=== PATIENT | female | born 1995 | race Caucasian/White ===

== ENCOUNTER 2018-07-07 03:12 | Inpatient (IN) | payer MEDICAID ==
[2018-07-07] MEDS ORDERED: MISOPROSTOL 200 MCG TAB PR (04:00)
[2018-07-07] MEDS ORDERED: IBUPROFEN 600 MG TAB PO (04:00)
[2018-07-07] MEDS ORDERED: LIDOCAINE 1% (MPF) 30 ML INJ INJ (04:00)
[2018-07-07] MEDS ORDERED: OXYTOCIN 30 UNITS/LR 500 ML IV ×4 (04:00→20:43)
[2018-07-07] MEDS ORDERED: BUTORPHANOL 2 MG INJ IV (04:00)
[2018-07-07] MEDS ORDERED: METHYLERGONOVINE 0.2 MG INJ IM (04:00)
[2018-07-07] MEDS ORDERED: CARBOPROST 250 MCG INJ IM (04:00)
[2018-07-07 04:10] LABS: RUPTURE FETAL MEMBRANES NEGATIVE (NEGATIVE)
[2018-07-07] MEDS: LACTATED RINGER'S 1,000 ML IV ×3 (04:22→16:44)
[2018-07-07 04:48] LABS: ADD MAN DIFF? NO
[2018-07-07 04:51] LABS: BASOPHILS % 0.4 % (0.0-2.0); EOSINOPHILS # 0.1 10^3/ul (0.0-0.5); EOSINOPHILS % 0.9 % (0.0-7.0); HEMATOCRIT 37.7 % (37.0-47.0); HEMOGLOBIN 12.7 g/dl (12.0-16.0); LYMPHOCYTES # 1.5 10^3/ul (0.8-2.9); LYMPHOCYTES % 14.3 % (15.0-51.0); MEAN CORPUSCULAR HEMOGLOBIN 28.8 pg (29.0-33.0); MEAN CORPUSCULAR HGB CONC 33.7 g/dl (32.0-37.0); MEAN CORPUSCULAR VOLUME 85.5 fl (82.0-101.0); MEAN PLATELET VOLUME 11.4 fl (7.4-10.4); MONOCYTE # 0.8 10^3/ul (0.3-0.9); MONOCYTES % 7.6 % (0.0-11.0); NEUTROPHIL # 8.2 10^3/ul (1.6-7.5); PLATELET COUNT 216 10^3/UL (140-415); RED BLOOD COUNT 4.41 10^6/ul (4.20-5.40); RED CELL DISTRIBUTION WIDTH 13.1 % (11.5-14.5)
[2018-07-07 04:51] LABS: WHITE BLOOD COUNT 10.8 10^3/ul (4.8-10.8)
[2018-07-07 05:11] LABS: INR 0.89; PARTIAL THROMBOPLASTIN TIME 28.2 Sec (23.0-35.0); PROTIME 12.2 Sec (11.9-14.9)
[2018-07-07] MEDS: OXYTOCIN 30 UNITS/LR 500 ML IV ×2 (06:36→21:16)
[2018-07-07] MEDS ORDERED: NALOXONE (0.4 MG/ML) INJ IV ×2 (10:00→21:00)
[2018-07-07] MEDS ORDERED: ONDANSETRON 4 MG INJ IV ×3 (10:00→21:00)
[2018-07-07] MEDS ORDERED: DIPHENHYDRAMINE 50 MG INJ IV ×3 (10:00→21:00)
[2018-07-07] MEDS ORDERED: FENTAnyl 2MCG/ML-ROPIV 0.2% 100 ML (10:07)
[2018-07-07] MEDS: ROPIVACAINE 0.2% 100ML BAG EPI (17:32)
[2018-07-07] MEDS ORDERED: morphine SULFATE/PF (10 MG/10 ML) INJ (19:56)
[2018-07-07] MEDS ORDERED: AZITHROMYCIN 500MG/NS (PMX) 250 ML (20:13)
[2018-07-07] MEDS ORDERED: METOCLOPRAMIDE 10 MG INJ (20:21)
[2018-07-07] MEDS ORDERED: FAMOTIDINE 20 MG INJ (20:22)
[2018-07-07] MEDS ORDERED: PHENYLephrine (100 MCG/ML) 10ML SYG (20:35)
[2018-07-07 20:40] LABS: RAPID PLASMA REAGIN NONREACTIVE (NR)
[2018-07-07] MEDS ORDERED: PROCHLORPERAZINE 10 MG INJ IV (21:00)
[2018-07-07] MEDS ORDERED: HYDROmorphONE 0.5 MG/0.5 ML SYG IV ×2 (21:00)
[2018-07-07] MEDS ORDERED: HYDROmorphONE 1 MG/5 ML IV SYRINGE IV ×3 (21:00)
[2018-07-07] MEDS ORDERED: MEPERIDINE 25 MG INJ IV (21:00)
[2018-07-07] MEDS ORDERED: KETOROLAC 30 MG INJ IV (21:00)
[2018-07-07] MEDS ORDERED: ZOLPIDEM 5 MG TAB PO (21:00)
[2018-07-07] MEDS ORDERED: FENTAnyl 50 MCG/ML VIAL IV ×2 (21:00)
[2018-07-07] MEDS: CEFAZOLIN 2 GM/50 ML (PMX) 50 ML IVPB (21:53)
[2018-07-07] MEDS: FENTAnyl 50 MCG/ML VIAL IV (22:09)
[2018-07-08] MEDS ORDERED: MISOPROSTOL 200 MCG TAB PR
[2018-07-08] MEDS ORDERED: CARBOPROST 250 MCG INJ IM
[2018-07-08] MEDS ORDERED: LANOLIN HPA 1 PKT TOP
[2018-07-08] MEDS ORDERED: METHYLERGONOVINE 0.2 MG TAB PO
[2018-07-08] MEDS ORDERED: METHYLERGONOVINE 0.2 MG INJ IM
[2018-07-08] MEDS ORDERED: OXYTOCIN 30 UNITS/LR 500 ML IV
[2018-07-08] MEDS: DEXTROSE 5%-LR 1,000 ML IV ×3 (05:51→16:00)
[2018-07-08 08:36] LABS: ADD MAN DIFF? NO
[2018-07-08 08:42] LABS: WHITE BLOOD COUNT 16.9 10^3/ul (4.8-10.8)
[2018-07-08 08:42] LABS: BASOPHIL # 0.1 10^3/ul (0.0-0.1); BASOPHILS % 0.4 % (0.0-2.0); EOSINOPHILS % 0.2 % (0.0-7.0); HEMATOCRIT 33.7 % (37.0-47.0); HEMOGLOBIN 11.3 g/dl (12.0-16.0); LYMPHOCYTES # 1.2 10^3/ul (0.8-2.9); MEAN CORPUSCULAR HEMOGLOBIN 29.1 pg (29.0-33.0); MEAN CORPUSCULAR HGB CONC 33.5 g/dl (32.0-37.0); MEAN CORPUSCULAR VOLUME 86.9 fl (82.0-101.0); MEAN PLATELET VOLUME 11.2 fl (7.4-10.4); MONOCYTE # 1.1 10^3/ul (0.3-0.9); MONOCYTES % 6.4 % (0.0-11.0); NEUTROPHIL # 14.4 10^3/ul (1.6-7.5); NEUTROPHILS % 85.2 % (39.0-77.0); PLATELET COUNT 168 10^3/UL (140-415); RED BLOOD COUNT 3.88 10^6/ul (4.20-5.40); RED CELL DISTRIBUTION WIDTH 13.2 % (11.5-14.5)
[2018-07-08] MEDS: OXYTOCIN 30 UNITS/LR 500 ML IV (09:06)
[2018-07-08] MEDS ORDERED: DIPHTH/TET/ACEL PERTUSS (ADULT) 0.5 ML VIAL IM* (11:00)
[2018-07-08] MEDS ORDERED: HYDROCODONE/APAP (5/325) TAB NGT (11:00)
[2018-07-08] MEDS: KETOROLAC 30 MG INJ IV (16:45)
[2018-07-08] MEDS: MAGNESIUM HYDROXIDE 30ML CUP PO (21:24)
[2018-07-08] MEDS: SENNA/DOCUSATE NA (8.6MG/50MG) TAB PO (21:24)
[2018-07-08] MEDS: HYDROCODONE/APAP (5/325) TAB GTB (21:24)
[2018-07-08] MEDS: IBUPROFEN 800 MG TAB PO (21:24)
[2018-07-09] MEDS: IBUPROFEN 800 MG TAB PO ×3 (05:25→22:29)
[2018-07-09] MEDS: HYDROCODONE/APAP (5/325) TAB GTB ×3 (05:25→22:30)
[2018-07-09] MEDS: DEXTROSE 5%-LR 1,000 ML IV ×2 (08:00)
[2018-07-09] MEDS: SENNA/DOCUSATE NA (8.6MG/50MG) TAB PO ×2 (10:04→22:29)
[2018-07-10] MEDS: DEXTROSE 5%-LR 1,000 ML IV ×2 (01:04)
[2018-07-10] MEDS: HYDROCODONE/APAP (5/325) TAB GTB ×2 (05:46→13:55)
[2018-07-10] MEDS: IBUPROFEN 800 MG TAB PO ×2 (05:46→13:55)
[2018-07-10 08:56] LABS: ADD MAN DIFF? NO
[2018-07-10] MEDS: DIPHTH/TET/ACEL PERTUSS (ADULT) 0.5 ML VIAL IM* (09:00)
[2018-07-10 09:03] LABS: BASOPHILS % 0.3 % (0.0-2.0); EOSINOPHILS # 0.2 10^3/ul (0.0-0.5); EOSINOPHILS % 1.9 % (0.0-7.0); HEMATOCRIT 33.5 % (37.0-47.0); LYMPHOCYTES # 1.4 10^3/ul (0.8-2.9); LYMPHOCYTES % 12.3 % (15.0-51.0); MEAN CORPUSCULAR HEMOGLOBIN 28.8 pg (29.0-33.0); MEAN CORPUSCULAR HGB CONC 32.8 g/dl (32.0-37.0); MEAN CORPUSCULAR VOLUME 87.7 fl (82.0-101.0); MEAN PLATELET VOLUME 10.9 fl (7.4-10.4); MONOCYTE # 0.6 10^3/ul (0.3-0.9); MONOCYTES % 5.5 % (0.0-11.0); NEUTROPHIL # 8.8 10^3/ul (1.6-7.5); NEUTROPHILS % 79.1 % (39.0-77.0); PLATELET COUNT 209 10^3/UL (140-415); RED BLOOD COUNT 3.82 10^6/ul (4.20-5.40); RED CELL DISTRIBUTION WIDTH 13.3 % (11.5-14.5)
[2018-07-10 09:03] LABS: WHITE BLOOD COUNT 11.1 10^3/ul (4.8-10.8)
[2018-07-10] MEDS: MAGNESIUM HYDROXIDE 30ML CUP PO (09:34)
[2018-07-10] MEDS: SENNA/DOCUSATE NA (8.6MG/50MG) TAB PO (09:34)
[2018-07-10] MEDS: MEASLES,MUMPS,RUBELLA VACCINE INJ SC* (09:35)
[2018-07-10] MEDS: NA PHOSPHATE/BIPHOS 133 ML ENEMA PR (13:55)
== END 2018-07-10 15:50 | disposition home or self-care (01) | DRG 788 ==
LOC: OBT 03:12 → L-D 03:12 → OBT 03:50 → L-D 03:50 → PP1 23:24
PROVIDERS: Obstetrics & Gynecology Gynecology
PROC: 10D00Z1 Extraction of Products of Conception, Low, Open Approach (ICD-10-PCS; principal; 2018-07-07 20:00)
DX: O76 Abnormality in fetal heart rate and rhythm complicating labor and delivery (principal); Z3A.39 39 weeks gestation of pregnancy; Z37.0 Single live birth
CPT/HCPCS: 62322; 76815; 76818; 84112; 85025; 85610; 85730; 86592; 86850; 86900; 86901; 90715; 99464